=== PATIENT | male | born 1980 | race Two or more races ===

== ENCOUNTER 2017-07-01 16:06 | Emergency (ER) | payer OTHER ==
[2017-07-01 16:23] VITALS: BP 132/72
[2017-07-01] MEDS ORDERED: DIPHENHYDRAMINE HCL 50 MG CAPSULE PO ONE (17:08)
[2017-07-01] MEDS ORDERED: FAMOTIDINE 20 MG TABLET PO ONE (17:08)
[2017-07-01] MEDS ORDERED: ACETAMINOPHEN 325 MG TABLET PO ONE (17:17)
--- NOTE | 2017-07-01 17:32 | ER Document Report ---
ED Extremity Problem, Lower - General Chief Complaint: Rash Stated Complaint: SWOLLEN LEG Time Seen by Provider: 07/01/17 16:31 Notes: Patient is a 36-year-old male who presents emergency department complaining of leg pain. Patient states [place] [employer] and he is visiting from [place]. Patient states that today he they were outside walking and was very active all day. He then states that he got home and he noticed redness, swelling, pain to the anterior left calf. Patient states that he describes it as a burning cramping sensation. He denies any bites, falls, contact with plants, trauma. Admits to some pain with walking. Pain gets worse the longer he is walking. - Related Data Allergies/Adverse Reactions: No Known Allergies Allergy (Unverified 07/01/17 16:22) Past Medical History - Social History Smoking Status: Current Some Day Smoker Chew tobacco use (# tins/day): No Frequency of alcohol use: Rare Drug Abuse: None Family History: Reviewed & Not Pertinent Renal/ Medical History: Denies: Hx Peritoneal Dialysis Review of Systems - Review of Systems Constitutional: No symptoms reported Musculoskeletal: See HPI Skin: See HPI -: Yes All other systems reviewed and negative Physical Exam - Vital signs Vitals: Temp Pulse Resp BP Pulse Ox 98.4 F 74 18 132/72 H 98 07/01/17 16:21 07/01/17 16:21 07/01/17 16:21 07/01/17 16:21 07/01/17 16:21 - Notes Notes: PHYSICAL EXAM GENERAL: Alert, interacts well. LUNGS: Clear to auscultation bilaterally, no wheezes, rales, or rhonchi. No respiratory distress. HEART: Regular rate and rhythm. No murmurs, gallops, or rubs. ABDOMEN: Soft, nondistended, nontender. No guarding, rebound, or rigidity.. Bowel sounds present in all 4 quadrants. EXTREMITIES: Moves all 4 extremities spontaneously. No edema, radial and dorsalis pedis pulses 2/4 bilaterally. No cyanosis. Admits to pain in the left calf to deep palpation. negative palpation of the posterior knee for any palpable cysts. No evidence of ecchymosis, deformity. No pitting edema. NEUROLOGICAL: Alert and oriented x4. Normal speech. PSYCH: Normal affect, normal mood. SKIN: Warm, dry, normal turgor. Patient has well demarcated erythema that is blanching and tender on the medial aspect of the left thigh without any palpable induration, swelling, fluctuance. Patient describes the sensation as burning. Course - Re-evaluation Re-evalutation: 07/01/17 21:34 Patient is a 36-year-old male who is hemodynamic stable, no acute distress and afebrile. At this time ultrasound was negative for any evidence of DVT, abscess , fluid collection. Patient able to ambulate and bear weight. No evidence of deformity, concern for fracture. CBC without any evidence of leukocytosis or left shift. No evidence of electrolyte abnormalities. Patient does have elevation in creatinine kinase. Otherwise benign workup. Patient to be discharged home with skin markers around the erythema with strict return precautions. Patient agrees with plan no evidence of a septic joint, gout flare , dislocation, or fracture on exam and imaging. Vitals wnl. At this time, I do not see an indication for labs or further imaging. Will discharge with conservative measures, return precautions, and follow-up recommendations. - Vital Signs Vital signs: Temp Pulse Resp BP Pulse Ox 98.4 F 74 18 132/72 H 98 07/01/17 16:21 07/01/17 16:21 07/01/17 16:21 07/01/17 16:21 07/01/17 16:21 - Laboratory Result Diagrams: 07/01/17 17:30 07/01/17 17:30 Laboratory results interpreted by me: 07/01/17 07/01/17 17:30 17:30 Hgb 13.4 L Hct 37.7 L Creatine Kinase 405 H - Diagnostic Test Radiology reviewed: Image reviewed, Reports reviewed Discharge - Discharge Clinical Impression: Leg pain Qualifiers: Laterality: left Qualified Code(s): M79.605 - Pain in left leg Condition: Good Disposition: HOME, SELF-CARE Additional Instructions: Please be sure to drink plenty of water to help your muscle heal Please buy Benadryl, Claritin, Pepcid and Motrin at the drug store. Benadryl, clariting and pepcid are anithistamines and will help with the burning/ inflammation. motrin will help with the pain Please return for any signs of fever, chills, redness that spreads outside the line significantly with increased swelling. Forms: Special Work Note
[2017-07-01 17:43] LABS: ABSOLUTE EOSINOPHILS # (AUTO) 0.2 10^3/uL (0.0-0.6); ABSOLUTE LYMPHOCYTES (AUTO) 2.2 10^3/uL (0.5-4.7); ABSOLUTE MONOCYTES (AUTO) 0.6 10^3/uL (0.1-1.4); ABSOLUTE NEUT (AUTO) 4.5 10^3/uL (1.7-8.2); BASOPHILS % (AUTO) 0.5 % (0-2); HEMATOCRIT 37.7 % (37.9-51.0); HEMOGLOBIN 13.4 g/dL (13.5-17.0); HGB HCT DIFFERENCE 2.5; LYMPHOCYTES % (AUTO) 29.5 % (13-45); MEAN CORPUSCULAR HEMOGLOBIN 30.6 pg (27.0-33.4); MEAN CORPUSCULAR HGB CONC 35.5 g/dL (32.0-36.0); MEAN CORPUSCULAR VOLUME 86 fl (80-97); MONOCYTES % (AUTO) 8.5 % (3-13); RED BLOOD COUNT 4.38 10^6/uL (4.35-5.55); RED CELL DISTRIBUTION WIDTH 12.7 % (11.5-14.0); SEGMENTED NEUTROPHILS % (AUTO) 58.5 % (42-78); WHITE BLOOD COUNT 7.6 10^3/uL (4.0-10.5)
[2017-07-01 18:01] LABS: ANION GAP 12 (5-19); BLOOD UREA NITROGEN 19 mg/dL (7-20); CALCIUM 9.9 mg/dL (8.4-10.2); CARBON DIOXIDE 30 mmol/L (22-30); CHLORIDE 101 mmol/L (98-107); CREATINE KINASE 405 U/L (55-170); CREATININE RESULT 1.13 mg/dL (0.52-1.25); GLUCOSE 110 mg/dL (75-110); POTASSIUM 4.5 mmol/L (3.6-5.0)
--- NOTE | 2017-07-02 10:43 | XCELERA REPORT ---
[address] [address] Lower Extremity Venous Evaluation Name: ALEXUS MORELOS Age: 36 yrs Gender: Male : 1980 Patient Status: Emergency Patient Location: ER Study Date: 07/01/2017 05:07 PM Procedure: Color flow and duplex imaging of the veins of the left lower extremity as well as the right Common Femoral vein. Reason For Study: RLE Ordering Physician: NICKOLAS DEVRIES PA-C Performed By: Daksha Madrigal Right Sided Venous Evaluation The right common femoral vein is fully compressible. Spontaneous and phasic flow is present in the right common femoral vein. Left Sided Venous Evaluation Normal vessel filling wall to wall, compression and augmentation as well as Colour flow down to the infrageniculate veins. Interpretation Summary No duplex evidence of DVT or obstruction in the left lower extremity nor in the right Common Femoral vein. : NICKOLAS DEVRIES PA-C > Braydon Blankenship
== END 2017-07-01 18:49 | disposition home or self-care (01) ==
LOC: ER 16:06
DX: M79.662 Pain in left lower leg (principal); L53.9 Erythematous condition, unspecified; R74.8 Abnormal levels of other serum enzymes; F17.200 Nicotine dependence, unspecified, uncomplicated
CPT/HCPCS: 36415; 80048; 82550; 85025; 93971; 99284

== ENCOUNTER 2018-03-17 14:03 | Emergency (ER) | payer OTHER ==
--- NOTE | 2018-03-17 15:21 | ER Document Report ---
ED Medical Screen (RME) - General Chief Complaint: Leg Swelling Stated Complaint: LEG SWELLING/PAIN Time Seen by Provider: 03/17/18 15:14 Notes: RAPID MEDICAL EVALUATION DISCLOSURE I have seen this patient as part of a Rapid Medical Evaluation and, if applicable, placed any initially appropriate orders. The patient will be seen and fully evaluated, including a full history and physical exam, by a provider ( in Main ED or Fast Track) when a room becomes available. 37-year-old male here with complaints of left thigh knee and calf swelling over the past few days. He has a history of DVT and has been taking Pradaxa for the past 7 months. He denies chest pain shortness of breath. He also complains of some right ankle stiffness. TRAVEL OUTSIDE OF THE [place] IN LAST 30 DAYS: No - Related Data Allergies/Adverse Reactions: No Known Allergies Allergy (Verified 03/17/18 14:05) Past Medical History Renal/ Medical History: Denies: Hx Peritoneal Dialysis Physical Exam - Vital signs Vitals: Temp Pulse Resp BP Pulse Ox 98.6 F 67 16 120/77 97 03/17/18 14:17 03/17/18 14:17 03/17/18 14:17 03/17/18 14:17 03/17/18 14:17 Course - Vital Signs Vital signs: Temp Pulse Resp BP Pulse Ox 98.6 F 67 16 120/77 97 03/17/18 14:17 03/17/18 14:17 03/17/18 14:17 03/17/18 14:17 03/17/18 14:17
[2018-03-17] MEDS ORDERED: OXYCODONE HCL IR 5 MG TABLET PO ONE (16:51)
--- NOTE | 2018-03-17 18:59 | XCELERA REPORT ---
[address] [address] Lower Extremity Venous Evaluation Name: ALEXUS MORELOS Age: 37 yrs Gender: Male : 1980 Patient Status: Emergency Patient Location: ER Study Date: 03/17/2018 04:00 PM Procedure: Color flow and duplex imaging bilaterally of the veins of the lower extremities as well as the Common Femoral veins. Reason For Study: BLE swelling, history of DVT; eval DVT Ordering Physician: MALGORZATA RANDHAWA Performed By: Daksha Madrigal Right Sided Venous Evaluation Normal vessel filling wall to wall, compression and augmentation as well as Colour flow down to the infrageniculate veins. Left Sided Venous Evaluation Occluded Greater Saphenous vein in the thigh, consistent with history of ablation. Normal vessel filling wall to wall, compression and augmentation as well as Colour flow down to the infrageniculate veins. Interpretation Summary No duplex evidence of DVT or obstruction in the bilateral lower extremities. Ablation of left Greater Saphenous, as noted. : MALGORZATA RANDHAWA [place]
[2018-03-17] MEDS ORDERED: KETOROLAC TROMETHAMINE 60 MG/2 ML SDV IM ONE (19:30)
[2018-03-17] MEDS ORDERED: COLCHICINE 0.6 MG TABLET PO ONE ×2 (19:30)
[2018-03-17] MEDS ORDERED: DEXAMETHASONE 4 MG TABLET PO ONE (19:30)
--- NOTE | 2018-03-17 19:33 | ER Document Report ---
ED General - General Chief Complaint: Leg Swelling Stated Complaint: LEG SWELLING/PAIN Time Seen by Provider: 03/17/18 15:14 Notes: Patient is a 37-year-old male visiting from [place] who presents with right ankle and left knee pain that have been present for the past 24 hours. He states that he was out drinking last night had a proximally 5-6 drinks and when he woke up this morning he noticed pain to these areas. He describes them as a dull, constant, aching pain. He states the pain prevents him from walking well at this time as this does exacerbate the pain. He has not tried anything for improvement of the pain. He states that this feels similar to when he has had gout once in the past. He does however note a history of a DVT for which he continues to take Pradaxa. He is concerned that he may be having a recurrence of a DVT. [place] he has not seen his primary doctor regarding today's concerns. He denies any fever or constitutional symptoms. No weakness or numbness. TRAVEL OUTSIDE OF THE [place] IN LAST 30 DAYS: No - Related Data Allergies/Adverse Reactions: No Known Allergies Allergy (Verified 03/17/18 14:05) Past Medical History - General Information source: Patient - Social History Smoking Status: Former Smoker Frequency of alcohol use: Occasional Drug Abuse: None Lives with: Friend Family History: Reviewed & Not Pertinent Patient has suicidal ideation: No Patient has homicidal ideation: No Renal/ Medical History: Denies: Hx Peritoneal Dialysis Review of Systems - Review of Systems Notes: Constitutional: Negative for fever. HENT: Negative for sore throat. Eyes: Negative for visual changes. Cardiovascular: Negative for chest pain. Respiratory: Negative for shortness of breath. Gastrointestinal: Negative for abdominal pain, vomiting or diarrhea. Genitourinary: Negative for dysuria. Musculoskeletal: Positive for right ankle and left knee pain Skin: Negative for rash. Neurological: Negative for headaches, weakness or numbness. 10 point ROS negative except as marked above and in HPI. Physical Exam - Vital signs Vitals: Temp Pulse Resp BP Pulse Ox 98.6 F 67 16 120/77 97 03/17/18 14:17 03/17/18 14:17 03/17/18 14:17 03/17/18 14:17 03/17/18 14:17 Interpretation: Normal Notes: PHYSICAL EXAMINATION: GENERAL: Well-appearing, well-nourished and in no acute distress. HEAD: Atraumatic, normocephalic. EYES: Pupils equal round and reactive to light, extraocular movements intact, sclera anicteric, conjunctiva are normal. ENT: nares patent, oropharynx clear without exudates. Moist mucous membranes. NECK: Normal range of motion, supple without lymphadenopathy LUNGS: Breath sounds clear to auscultation bilaterally and equal. No wheezes rales or rhonchi. HEART: Regular rate and rhythm without murmurs ABDOMEN: Soft, moderately obese abdomen, nontender, normoactive bowel sounds. No guarding, no rebound. No masses appreciated. EXTREMITIES: Full flexion extension of the left knee as well as full dorsi and plantar flexion of the right ankle. There is a mild joint effusion to both the left knee and right ankle although no significant erythema. There is no surrounding cellulitis to the affected areas. No edema in either leg. NEUROLOGICAL: No focal neurological deficits. Moves all extremities spontaneously and on command. PSYCH: Normal mood, normal affect. SKIN: Warm, Dry, normal turgor, no rashes or lesions noted. Course - Re-evaluation Re-evalutation: 03/17/18 19:31 Patient presents with swelling and pain to his left knee as well as right ankle. Presentation is most consistent with acute gouty arthritis as the patient was drinking heavily last night and had an onset of his joint inflammation shortly thereafter. He has a history of gout under similar circumstances in the past. The patient does have a history of DVT but is currently anticoagulated on Pradaxa and has not missed any doses of this medication. Venous Doppler ultrasound without any evidence of recurrent DVT. Patient has been treated with dexamethasone, colchicine and Toradol. He will be discharged home on naproxen. I do not clinically suspect an acute septic arthritis. He has full flexion extension at the left knee and right ankle there is no significant erythema to the area. No constitutional symptoms or vital sign derangements to suggest this diagnosis. At this time will discharge with return precautions and follow-up recommendations. Verbal discharge instructions given a the bedside and opportunity for questions given. Medication warnings reviewed. Patient is in agreement with this plan and has verbalized understanding of return precautions and the need for primary care follow-up in the next 24-72 hours. - Vital Signs Vital signs: Temp Pulse Resp BP Pulse Ox 97.6 F 68 17 128/80 H 100 03/17/18 20:08 03/17/18 20:08 03/17/18 20:08 03/17/18 20:08 03/17/18 20:08 - Diagnostic Test Radiology reviewed: Reports reviewed Discharge - Discharge Clinical Impression: Gouty arthritis Left knee pain Qualifiers: Chronicity: acute Qualified Code(s): M25.562 - Pain in left knee Right ankle pain Qualifiers: Chronicity: acute Qualified Code(s): M25.571 - Pain in right ankle and joints of right foot Condition: Good Disposition: HOME, SELF-CARE Additional Instructions: You were seen today for gout. Please take the second dose of colchicine that you were sent home with 1 hour after receiving your first dose. Take Tylenol 1000 mg every 6 hours as needed for pain. Take naproxen 500 mg twice daily until your symptoms have resolved. Follow-up with your primary care doctor in the next several days. Return if you have fever greater than 100.4F, worsening pain, become unable to move the knee, or have any other symptoms that are worrisome to you. Prescriptions: Naproxen 500 mg PO BID #60 tablet
[2018-03-17 20:29] VITALS: BP 128/80
== END 2018-03-17 20:08 | disposition home or self-care (01) ==
LOC: ER 14:03
DX: M10.9 Gout, unspecified (principal); M25.562 Pain in left knee; M25.571 Pain in right ankle and joints of right foot; Z79.01 Long term (current) use of anticoagulants; Z87.891 Personal history of nicotine dependence
CPT/HCPCS: 99284; 96372; 93970 ×2; J1885